=== PATIENT | male | born 1995 | race Caucasian/White ===

== ENCOUNTER 2017-05-26 17:05 | Emergency (ER) | payer BC ==
[2017-05-26 17:12] VITALS: BP 127/81
== END 2017-05-26 17:27 | disposition left against medical advice (07) ==
LOC: ED 17:05
DX: S05.31XA Ocular laceration without prolapse or loss of intraocular tissue, right eye, initial encounter (principal); X58.XXXA Exposure to other specified factors, initial encounter; Y92.9 Unspecified place or not applicable